=== PATIENT | male | born 1975 | race Caucasian/White ===

== ENCOUNTER → 2023-10-10 08:58 | Outpatient (REF) | payer OTHER, SELFPAY ==
[2023-10-10 09:27] LABS: % Basophils 0.4 % (0-2); % Eosinophils 2.6 % (0-6); % Immature Granulocytes 0.2 % (0-0.5); % Lymphocytes 27.3 % (20.5-51.1); % Monocytes 10.5 % (1.7-9.3); Absolute Eosinophils 0.1 10^3/uL (0-0.7); Absolute Lymphocytes 1.5 10^3/uL (1.2-3.4); Absolute Monocytes 0.6 10^3/uL (0.1-0.6); Absolute Neutrophils 3.2 10^3/uL (1.4-6.5); Hematocrit 43.6 % (39.0-52.0); Hemoglobin 15.4 g/dL (13.0-18.0); Mean Corp Hgb Conc. 35.3 g/dL (33.0-37.0); Mean Corpuscular Hgb 31.4 pg (27.0-31.0); Mean Platelet Volume 12.1 fL (7.4-10.4); Nucleated Red Blood Cells % 0 % (-); Platelet Count 161 10^3/uL (130-400); Red Cell Dist. Width 11.9 % (11.5-14.5); White Blood Cell Count 5.4 10^3/uL (4.8-10.8)
[2023-10-10 13:26] LABS: ALT (SGPT) 23 U/L (0-50); AST (SGOT) 30 U/L (17-59); Albumin 4.7 g/dl (3.5-5.0); Alkaline Phosphatase 59 U/L (38-126); Blood Urea Nitrogen 25 mg/dl (9-20); Calcium 9.3 mg/dl (8.4-10.2); Carbon Dioxide 28 mmol/L (22-30); Chloride 103 mmol/L (98-107); Glucose 90 mg/dl (70-99); HDL Cholesterol 46 mg/dl; LDL Cholesterol, Calculated 127 mg/dl; Lipase 72 U/L (23-300); Potassium 4.2 mmol/L (3.5-5.1); Sodium 138 mmol/L (135-145); Total Bilirubin 1.2 mg/dl (0.2-1.3); Total Cholesterol 191 mg/dl (50-199); Total Protein 7.5 g/dl (6.3-8.2); Triglyceride 93 mg/dl (10-149); Very Low Density Lipoprotein 18 mg/dl (0-30); eGFR > 60.00
[2023-10-11 19:58] LABS: Hepatitis B Surface Antigen Negative (Negative)
[2023-10-11 20:17] LABS: Hepatitis B Core Ab, Total Negative (Negative); Hepatitis B Surface Antibody Negative; Hepatitis C Antibody Negative (Negative)
[2023-10-12 03:57] LABS: HCV Quant by NAAT IU/mL Not Detected; HCV Quant by NAAT Interp Not Detected (Not Detected); HCV Quant by NAAT Log IU/mL Not Detected log IU/mL
== END ==
LOC: REG 08:58
PROVIDERS: ATTENDING PHYSICIAN Student in an Organized Health Care Education/Training Program
DX: R10.11 Right upper quadrant pain (principal)
CPT/HCPCS: 36415; 80053; 80061; 83690; 85025; 86704; 86706; 86803; 87340; 87522

== ENCOUNTER 2023-11-09 11:39 | Emergency (ER) | payer OTHER, SELFPAY ==
[2023-11-09 11:39] VITALS: BMI 28.2
[2023-11-09 11:40] VITALS: BP 157/88
[2023-11-09 12:00] LABS: % Basophils 0.6 % (0-2); % Immature Granulocytes 0.3 % (0-0.5); % Lymphocytes 24.7 % (20.5-51.1); % Monocytes 10.9 % (1.7-9.3); % Neutrophils 62.5 % (42.2-75.2); Absolute Eosinophils 0.1 10^3/uL (0-0.7); Absolute Lymphocytes 1.7 10^3/uL (1.2-3.4); Absolute Monocytes 0.7 10^3/uL (0.1-0.6); Absolute Neutrophils 4.2 10^3/uL (1.4-6.5); Hematocrit 41.2 % (39.0-52.0); Hemoglobin 14.6 g/dL (13.0-18.0); Mean Corp Hgb Conc. 35.4 g/dL (33.0-37.0); Mean Corpuscular Hgb 30.9 pg (27.0-31.0); Mean Corpuscular Volume 87.3 fL (80.0-94.0); Mean Platelet Volume 11.7 fL (7.4-10.4); Nucleated Red Blood Cells % 0 % (-); Platelet Count 173 10^3/uL (130-400); Red Blood Cell Count 4.72 10^6/uL (4.70-6.10); White Blood Cell Count 6.8 10^3/uL (4.8-10.8)
[2023-11-09 12:32] LABS: ALT (SGPT) 19 U/L (0-50); AST (SGOT) 27 U/L (17-59); Albumin 4.6 g/dl (3.5-5.0); Alkaline Phosphatase 63 U/L (38-126); Blood Urea Nitrogen 19 mg/dl (9-20); Calcium 9.5 mg/dl (8.4-10.2); Carbon Dioxide 29 mmol/L (22-30); Chloride 101 mmol/L (98-107); Glucose 91 mg/dl (70-99); Lipase 53 U/L (23-300); Potassium 4.1 mmol/L (3.5-5.1); Sodium 136 mmol/L (135-145); Total Bilirubin 1.2 mg/dl (0.2-1.3); Total Protein 7.5 g/dl (6.3-8.2); eGFR > 60.00
[2023-11-09 15:20] VITALS: BP 149/96
--- NOTE | 2023-11-09 15:50 | EDRN ---
Pt was moved to [facility] 3 at this time.
--- NOTE | 2023-11-09 15:54 | EDRN ---
Mary CROCKER in RP was called and given a verbal report at this time on pt.
--- NOTE | 2023-11-09 16:04 | ED.GENMED ---
History of Present Illness
General
Chief Complaint: Abdominal Pain
Source: patient
Exam Limitations: none
Time Seen by Provider: 11/09/23 14:04
Travel History
Have you had any contact with someone who has COVID-19?: No
Do you have any symptoms of coronavirus? Fever > 100 degrees, chills, cough, shortness of breath, sore throat, loss of taste or smell, muscle aches, or headache?: No
History of Present Illness
History of Present Illness:
48-year-old male presents' abdominal pain has been ongoing for about 2 months. The patient states he recently moved here from out of town. Patient states the pain has been ongoing since around [place] time. Patient states that he tried changing
his diet but no symptom relief. Patient does admit that sometimes pain is worse with moving. Sometimes radiates towards his back. No fevers. No chest pain. No vomiting.
Past History
Past History
ED Past Medical History: None
ED Past Surgical History: Other (Hernia repair)
Phy Exam
Physical Exam
Physical Exam:
CONSTITUTIONAL Patient alert and oriented to person, place and time. Well-appearing. Vital signs reviewed.
HEAD atraumatic, normocephalic.
EYES eyelids normal to inspection, Pupils equally round and reactive to light, Extraocular muscles intact, Conjunctiva normal, Sclera normal.
NECK normal range of motion, Trachea midline, no jugular venous distention.
RESPIRATORY CHEST No respiratory distress noted, Chest expansion equal, Bilateral breath sounds clear.
CARDIOVASCULAR regular rate and rhythm, Heart sounds normal.
ABDOMEN mild right upper quadrant tenderness, Bowel sounds normal. No distention.
BACK normal inspection, no obvious deformities
UPPER EXTREMITY range of motion normal, Motor strength normal, no cyanosis, no edema.
LOWER EXTREMITY range of motion normal, Motor strength normal, no cyanosis, no edema.
NEURO Speech normal, No focal motor deficits, Key coma scale 15, Memory normal, Cranial Nerves intact to screening exam.
SKIN skin warm, dry, and normal in color.
PSYCHIATRIC patient oriented to person place and time, Normal affect.
Course
Orders/Labs/Results
Orders:
Orders
11/09/23 11:48
Complete Blood Count/With Diff Urgent
Comprehensive Metabolic Panel Urgent
Lipase Urgent
11/09/23 14:04
US Abdomen Complete/Upper Urgent
Comment:
Reason For Exam: RUQ pain
Abnormal Lab Results
11/09/23
11:48
MPV 11.7 H fL
(7.4-10.4)
Absolute Monos (auto) 0.7 H 10^3/uL
(0.1-0.6)
Monocytes % 10.9 H %
(1.7-9.3)
11/09/23 11:48
11/09/23 11:48
Vital Signs
Initial and Last Documented VS:
Initial Vital Signs
Temp Pulse Resp BP Pulse Ox
97.7 F 69 16 157/88 98
11/09/23 11:40 11/09/23 11:40 11/09/23 11:40 11/09/23 11:40 11/09/23 11:40
Last Documented Vital Signs
Temp Pulse Resp BP Pulse Ox
97.7 F 61 14 149/96 98
11/09/23 11:40 11/09/23 15:20 11/09/23 15:20 11/09/23 16:29 11/09/23 15:20
MDM/Problems Addressed
MDM/Problems Addressed:
Abdominal pain
*Radiology
Radiology exam reviewed: radiology read reviewed
*Pulse Oximetry
Patient hypoxic: no
*Critical Care Note
Total Time (30-74mins, 75-104mins- exclusive of procedures): Not Applicable
Data Reviewed
Source: patient
Further Testing Considered But Not Given:
Consider CT with symptoms x 2 months and labs and ultrasound normal
Patient Management
Escalation/DeEscalation of care consider admission/obs:
Labs and ultrasound unremarkable. Symptoms x 2 months and LFTs and lipase normal. White count normal. Patient appears well. Will refer to outpatient follow-up for further workup
ED Attending Note
-
Portions of this chart may have been created with voice recognition software.� Occasional wrong word or��sound alike� substitutions may have occurred due to the inherent limitations of voice recognition software.
Discharge Plan
Departure
Patient Disposition: Home (Routine Discharge)
Date of Disposition: 11/09/23
Time of Disposition: 16:04
Patient with high blood pressure during this ER visit?: Yes
Discharge Problem:
Abdominal pain
Instructions: Abdominal Pain
Referrals:
UNKNOWN - PT DOES,NOT KNOW [Family Provider] -
Activity Restrictions/Additional Instructions:
Please see your doctor in the next 2 to 3 days for follow-up and reevaluation. Return immediately for worsening symptoms, shortness of breath, chest pain or any other concerns.
Interventions
Interventions:
*Risk Screen - Suicide Last Done: 11/09/23 11:40
*General Assessment Last Done: 11/09/23 11:40
*Neglect/Abuse Screening Last Done: 11/09/23 11:40
ED- Fall Risk Assessment Last Done: 11/09/23 15:11
*ED COVID-19 Vaccine History Last Done: 11/09/23 15:11
*Nursing Disposition Last Done: 11/09/23 16:29
WC-Dakoof-Lpjbycisda Assessment Last Done: 11/09/23 15:11
Discharge Date and Time
Discharge Date/Time: 11/09/23 16:30
[2023-11-09 16:29] VITALS: BP 149/96
== END 2023-11-09 16:30 | disposition home or self-care (01) ==
LOC: EMR 11:39
PROVIDERS: Emergency Medicine; EMERGENCY PHYSICIAN Emergency Medicine
DX: R10.9 Unspecified abdominal pain (principal); R10.11 Right upper quadrant pain; R03.0 Elevated blood-pressure reading, without diagnosis of hypertension
CPT/HCPCS: 99284; 76700; 80053; 83690; 85025

== ENCOUNTER 2024-04-15 13:00 | Emergency (ER) | payer OTHER, SELFPAY ==
[2024-04-15 13:10] VITALS: BP 119/88
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
== END 2024-04-15 14:57 | disposition home or self-care (01) ==
LOC: EMR 13:00
PROVIDERS: EMERGENCY PHYSICIAN Emergency Medicine; FAMILY PHYSICIAN Family Medicine
DX: S09.90XA Unspecified injury of head, initial encounter (principal); S16.1XXA Strain of muscle, fascia and tendon at neck level, initial encounter; V17.0XXA Pedal cycle driver injured in collision with fixed or stationary object in nontraffic accident, initial encounter
CPT/HCPCS: 99284; 70450; 72125

== ENCOUNTER 2024-07-21 22:30 | Emergency (ER) | payer OTHER, SELFPAY ==
[2024-07-21 22:32] VITALS: BP 148/96
--- NOTE | 2024-07-21 22:52 | ED.GENMED ---
History of Present Illness
General
Chief Complaint: Skin Surface Trauma
Time Seen by Provider: 07/21/24 22:40
History of Present Illness
History of Present Illness:
Patient is a 49-year-old man presenting to the emerged to department with a laceration to his finger. Patient states that he was opening up a metal water bottle for his daughter when he opened the lid and there was a piece of metal sticking out and
it cut his finger. He did hold pressure on it for about an hour and the bleeding did not stop so he came to the emergency department. He is not on any blood thinners. After he arrived the bleeding did stop. No numbness tingling. No weakness.
Past History
Past History
ED Past Medical History: None
ED Past Surgical History: Other (Hernia repair)
Social History
Tobacco: Non-smoker
Alcohol: Occasional
Drug: None
Personal:
Living: with family
Employment: Employed
Phy Exam
Physical Exam
Physical Exam:
GENERAL: in no acute distress
HEENT: normocephalic, extraocular movements intact
NECK: normal inspection
RESPIRATORY: no respiratory distress
CARDIOVASCULAR: regular rate and rhythm
EXTREMITIES: Right index finger palmar aspect over the distal phalanx with 1 cm extremely superficial laceration
NEUROLOGIC: awake and alert, moves all extremities
SKIN: warm
Course
Orders/Labs/Results
Orders:
Orders
07/21/24 22:51
Tetanus/Diphth/Acelpertussis [Adacel] 0.5 ml IM .ONCE ONE
Vital Signs
Initial and Last Documented VS:
Initial Vital Signs
Temp Pulse Resp BP Pulse Ox
97.1 F 66 18 148/96 98
07/21/24 22:32 07/21/24 22:32 07/21/24 22:32 07/21/24 22:32 07/21/24 22:32
Last Documented Vital Signs
Temp Pulse Resp BP Pulse Ox
97.1 F 66 18 148/96 98
07/21/24 22:32 07/21/24 22:32 07/21/24 22:32 07/21/24 22:32 07/21/24 22:32
Procedures
Laceration Closure
Right Finger:
Status of Wound: clean
Size of Wound in cm: 1
Description of Wound Edges: sharp
Preparation: cleaned with saline
Type of Closure: Dermabond-skin glue
MDM/Problems Addressed
Differential Diagnosis Includes:
49-year-old man presenting to the emergency department with a superficial laceration to the tip of his right index finger. Vitals unremarkable and exam does show extremely superficial laceration that is about 1 cm long. Bleeding is controlled at
this time. Wound was cleaned and no foreign body seen. Given that the bleeding has stopped and his laceration was extremely superficial we did discuss no intervention versus Dermabond. Patient did opt for Dermabond. Will update patient's tetanus
as well. Patient stable for discharge at this time.
*Critical Care Note
Total Time (30-74mins, 75-104mins- exclusive of procedures): Not Applicable
ED Attending Note
-
Portions of this chart may have been created with voice recognition software.� Occasional wrong word or��sound alike� substitutions may have occurred due to the inherent limitations of voice recognition software.
Discharge Plan
Departure
Patient Disposition: Home (Routine Discharge)
Date of Disposition: 07/21/24
Time of Disposition: 22:51
Patient with high blood pressure during this ER visit?: No
Discharge Problem:
Finger injury
Instructions: Laceration Repair With Glue (DC)
Interventions
Interventions:
*Risk Screen - Suicide Last Done: 07/21/24 22:32
*General Assessment Last Done: 07/21/24 22:39
*Neglect/Abuse Screening Last Done: 07/21/24 22:32
ED-Skin Assessment Last Done: 11/11/24 22:39
Discharge Date and Time
Print Language: NEPALESE
[2024-07-21] MEDS: ADACEL 0.5 ML IM (22:58)
[2024-07-21 23:03] VITALS: BP 132/84
== END 2024-07-21 23:05 | disposition home or self-care (01) ==
LOC: EMR 22:30
PROVIDERS: EMERGENCY PHYSICIAN Student in an Organized Health Care Education/Training Program; FAMILY PHYSICIAN Family Medicine
DX: S61.216A Laceration without foreign body of right little finger without damage to nail, initial encounter (principal); X58.XXXA Exposure to other specified factors, initial encounter
CPT/HCPCS: 99284; 90471; 90715

== ENCOUNTER 2024-09-26 16:12 | Emergency (ER) | payer OTHER, SELFPAY ==
[2024-09-26 16:17] VITALS: BP 143/98
--- NOTE | 2024-09-26 17:03 | ED.MUSCINJ ---
HPI-Injury
<PUSHPA Melchor - Last Filed: 09/26/24 19:26>
General
Chief Complaint: Musculo-Skeletal Complaint
Source: patient
Time Seen by Provider: 09/26/24 16:34
History of Present Illness-Injury
Initial Injury comments:
This is a 49 y/o male without significant PMH who presents to the ED s/p fall while skiing today. Pt was wearing a helmet and denies hitting his head or LOC. Pt fell on his R upper extremity and R lateral trunk, he describes some twisting and
rolling movements during the fall and states 'I got the wind knocked out of me.' He was able to get up by himself within a minute and continued to ski for another hour after falling. He primarily complains of R shoulder pain and is holding the arm
in adduction and internal rotation. He describes the pain is 6/10 severity and dull ache over the entire R shoulder at rest. With movement, the shoulder pain is sharp and 8/10 severity. He applied ice to the shoulder prior to arrival at the ED. He
denies taking any medications for pain prior to arrival at the ED. He admits to R flank pain that is a constant dull ache and 2/10 severity. Movement such as twisting the trunk makes the pain worse. He admits to L knee pain that is localized to the
medial aspect of the knee and 3/10 severity. He describes the knee pain is worse with standing and goes away when sitting unless he is touching the area. Denies headache, vision changes, dizziness, dyspnea, chest pain, pain with inspiration and
paresthesias.
Past History
<PUSHPA Melchor - Last Filed: 09/26/24 19:26>
Past History
ED Past Medical History: None
ED Past Surgical History: Other (Hernia repair)
Social History
Tobacco: Non-smoker
Alcohol: Occasional
Drug: None
Personal:
Living: with family
Employment: Employed
Phy Exam
<Mona Swan RUST - Last Filed: 09/26/24 19:26>
Physical Exam
Physical Exam:
Skin: [place], soft, well-hydrated; turgor with instant recoil
Head: Atraumatic, normocephalic; scalp, pink freely moveable without tenderness
Eyes: sclerae non-icteric; PERRLA; EOMI; no lid lag
Chest and Lungs: muscle and respiratory effort symmetric without use of accessory muscles; vesicular breath sounds without adventitious sounds; even, quiet breathing
Heart: No lifts or heaves visible; regular rate and rhythm; No murmurs, rubs or gallops
PV: radial, dorsalis pedis and posterior tibial pulses all intact bilaterally
MSK: R shoulder ROM is limited for flexion, abduction and external rotation; Positive speeds test for R shoulder; L knee without asymmetry or deformities to palpation, tenderness to palpation over medial aspect, full ROM, negative valgus stress
test, negative varus stress test, negative anterior drawer test, negative Kandice test, negative Viry test;
Spine: Inspection reveals no evidence of lesions, rash, erythema deformities or asymmetry. Spinous processes nontender to palpation throughout with no evidence of step-offs. Paravertebral muscles and trapezii nontender to palpation without evidence
of spasm.
Injury Course
<Mona Swan RUST - Last Filed: 09/26/24 19:26>
Orders/Labs/Results
Orders:
Orders
09/26/24 16:22
Shoulder, Right, Trauma [CR Shoulder, Trauma - Right] Urgent
Comment:
Reason For Exam: fall onto right shoulder while skiing.
09/26/24 17:08
Sling Right-Treatment ONCE
Ibuprofen [Motrin] 800 mg PO NOW STA
CR Knee - Left 4 Or More View* Urgent
Comment:
Reason For Exam: knee tenderness
CR Ribs-right 3 Vw W/pa Chest* Urgent
Comment:
Reason For Exam: lower ribs
09/26/24 18:18
Incentive Spirometry [Rx Incentive Spirometry] [RESP] Urgent
Frequency: q1h while awake
<Lu Huggins MD - Last Filed: 09/26/24 19:07>
Orders/Labs/Results
Orders:
Orders
09/26/24 16:22
Shoulder, Right, Trauma [CR Shoulder, Trauma - Right] Urgent
Comment:
Reason For Exam: fall onto right shoulder while skiing.
09/26/24 17:08
Sling Right-Treatment ONCE
Ibuprofen [Motrin] 800 mg PO NOW STA
CR Knee - Left 4 Or More View* Urgent
Comment:
Reason For Exam: knee tenderness
CR Ribs-right 3 Vw W/pa Chest* Urgent
Comment:
Reason For Exam: lower ribs
09/26/24 18:18
Incentive Spirometry [Rx Incentive Spirometry] [RESP] Urgent
Frequency: q1h while awake
<PUSHPA Melchor - Last Filed: 09/26/24 19:26>
MDM/Problems Addressed
MDM/Problems Addressed:
Pt is a 49 y/o male without significant PMH who presents to the ED after a fall while skiing today. Pt fell on his R side, got up by himself after the fall and continued to ski for about an hour afterwards. He describes R shoulder pain that is worse
with movement. Shoulder xray does not show any abnormal findings, but he has limited ROM and is holding the arm in adduction and internal rotation. Pt has positive Speeds test which likely means rotator cuff etiology. Pt to followup outpatient with
ortho surgery. L knee xray does not show any abnormal findings. Xray of ribs shows nondisplaced fracture of 6th rib. Pt does not meet any Bruner CT head criteria and therefore it is not indicated at this time.
<PUSHPA Melchor - Last Filed: 09/26/24 19:26>
*Critical Care Note
Total Time (30-74mins, 75-104mins- exclusive of procedures): Not Applicable
ED Attending Note
<PUSHPA Melchor - Last Filed: 09/26/24 19:26>
-
Portions of this chart may have been created with voice recognition software.� Occasional wrong word or��sound alike� substitutions may have occurred due to the inherent limitations of voice recognition software.
<Lu Huggins MD - Last Filed: 09/26/24 19:07>
ED Attending Note
Patient seen and examined by attending physician: Yes
I performed the substantive portion of visit, reviewed & personally made and approve the management plan that is documented in note by myself or BECKY.: Yes
ED Attending Note:
I have seen and evaluated the patient with a [id number] encounter. I have spoken to the [PA student] and involved in the medical history, the physical exam, medical decision making.
Evaluation and management service: agree unless noted differently below.
Results interpretation: agree unless noted differently below.
Patient is a 49-year-old man who is otherwise healthy presenting to the emergency department after a skiing incident. Patient states that he was skiing wearing a helmet when he fell. He landed on his right shoulder but that his torso. He was
wearing a helmet. He did not lose consciousness. He is not on any blood thinner. He states that his major complaint currently is his right shoulder. This worse with any movement. No numbness tingling. He is having some weakness secondary to
the pain. Initially complained of neck pain to the triage nurse however denied it to me. Is also been having some right sided rib pain as well as left-sided knee pain that is worse with standing. He was ambulatory and did continue skiing after
the incident.
GENERAL: no acute distress
HEENT: atraumatic, extraocular muscles intact, no signs of entrapment, dentition intact, no other obvious trauma
NECK: no midline tenderness, normal range of motion, no other obvious trauma
BACK: no midline tenderness, no other obvious trauma
CHEST: Mild tenderness to the right lower ribs, no flail segment, no subcutaneous emphysema, no other obvious trauma
LUNGS: clear to auscultation bilaterally
CARDIOVASCULAR: regular rate and rhythm
ABDOMEN: soft, non-tender, no masses, no other obvious trauma
PELVIS: stable, no obvious injury
EXTREMITIES: Right shoulder with tenderness diffusely, limited range of motion in flexion and abduction, 2+ radial pulses, sensation intact. Left knee with tenderness over the medial aspect, no joint laxity. Full strength in lower extremity.
Otherwise moving all extremities, distal pulses intact, no other obvious trauma
NEUROLOGIC: awake, alert x 3, no focal deficits
49-year-old man who is otherwise healthy presenting to the emergency department after a fall while skiing with right shoulder right rib and left knee pain. Vitals are unremarkable and not on exam he has right shoulder tenderness with limited range
of motion of his right shoulder secondary to pain. He is also having some knee pain and is tender to palpation. Concern for shoulder injury such as fracture versus MSK pain versus rotator cuff tear. Concern for rib fractures as well as knee
fracture. Will pain control. X-ray of the shoulder obtained prior to my evaluation which per my interpretation shows no acute fracture or dislocation. Will place patient in sling. Will obtain rib x-ray as well as x-rays of the knee. Consider
obtaining CT scan imaging of the head however he is low risk per the Bruner head CT rules.
X-ray of the knee per my interpretation no acute fracture. Rib x-ray does show single rib fracture. Patient pulls well over 4000 on incentive spirometer. Patient educated on the importance of this. We discussed pain control. Will discharge him
at this time with orthopedic follow-up.
Discharge Plan
Departure
Patient Disposition: Home (Routine Discharge)
Date of Disposition: 09/26/24
Time of Disposition: 19:02
Patient with high blood pressure during this ER visit?: No
Discharge Problem:
Right shoulder pain, Fracture, rib
Instructions: How to Use a Shoulder Sling, Rib fracture or bruised rib - ED discharge instructions
Referrals:
Lu Huggins MD [Emergency Provider] -
Rickey Cruz MD [Active] - Follow up in 1 week
Doyle Nava Jr., DO [Family Provider] -
Activity Restrictions/Additional Instructions:
You were seen in the Emergency Department today for a fall while skiing. You are found to have a rib fracture. Please continue to use the incentive spirometer. Please use the sling for your shoulder pain and follow-up with orthopedics as
discussed.
We would like for you to follow up with your primary care physician for further evaluation. If you experience fever, worsening of your symptoms, or develop any other new or concerning symptoms, please return to the Emergency Department immediately.
Please see the attached sheet for additional information.
Interventions
Interventions:
*General Assessment Last Done: 09/26/24 17:47
*Neglect/Abuse Screening Last Done: 09/26/24 17:47
*ED COVID-19 Vaccine History Last Done: 09/26/24 17:47
ED-Musculoskeletal Assessment Last Done: 09/26/24 17:47
Discharge Date and Time
Print Language: AMERICAN
[2024-09-26] MEDS: MOTRIN 800 MG PO (18:39)
== END 2024-09-26 19:27 | disposition home or self-care (01) ==
LOC: EMR 16:12
PROVIDERS: EMERGENCY PHYSICIAN Student in an Organized Health Care Education/Training Program; FAMILY PHYSICIAN Family Medicine
DX: M25.511 Pain in right shoulder (principal); S22.31XA Fracture of one rib, right side, initial encounter for closed fracture; M25.562 Pain in left knee; V00.321A Fall from snow-skis, initial encounter; Y93.23 Activity, snow (alpine) (downhill) skiing, snowboarding, sledding, tobogganing and snow tubing
CPT/HCPCS: 99283; 71101; 73030; 73564